=== PATIENT | female | born 1930 | race Caucasian/White ===

== ENCOUNTER 2017-10-31 20:11 | Emergency (ER) | payer MEDICARE ==
[~2017-10-31] VITALS: Ht 172.7 cm; Wt 70.0 kg
[2017-10-31 20:19] VITALS: BP 149/69; PULSE 98; RESP 16; TEMP 98.1; O2SAT 94
[2017-10-31 20:38] VITALS: PULSE 95; RESP 16; O2SAT 92
--- NOTE | 2017-10-31 20:40 | PD ---
HPI Chief Complaint: Fall Time Seen by Provider: 20:26 Travel History International Travel<30 days: No Contact w/Intl Traveler<30days: No Traveled to known affect area: No History of Present Illness HPI This is an 86-year-old female who presented via EMS for evaluation of fall. Reportedly the patient fell at home in her bathroom. The patient pressed her life alert button and that is how EMS was able to find her. The circumstances surrounding the incident are unclear the patient is a poor historian. When asked if she fell she says yes. When asked how she fell she is unable to answer. When asked if she has pain she says her back hurts. History is otherwise not obtainable and not available. She does seem to have a cough during examination. The patient has never been here before. PFSH Past Medical History ?: Not Family History Narrative Family History Unable to obtain Social History Alcohol Use: No (Unable to obtain) Tobacco Use: No (Unable to obtain) Allergies-Medications (Allergen,Severity, Reaction): Coded Allergies: No Known Allergies (Unverified , 10/31/17) Reported Meds & Prescriptions Reported Meds & Active Scripts Active Azithromycin 250 Mg Tab 250 Mg PO DAILY 4 Days Review of Systems ROS Limitations: Poor Historian Except as stated in HPI: all other systems reviewed are Neg Physical Exam Exam Limitations: Poor Historian Narrative GENERAL: This is an elderly female who is in no acute distress. SKIN: Warm and dry. There is a hematoma/abrasion on the right eyebrow. Skin tears are noted on the right arm. HEAD: Skin as noted above. Normocephalic. EYES: Pupils equal and round. No scleral icterus. No injection or drainage. ENT: No nasal bleeding or discharge. Mucous membranes pink and moist. NECK: Trachea midline. No JVD. CARDIOVASCULAR: Regular rate and rhythm. No murmur appreciated. RESPIRATORY: No accessory muscle use. Clear to auscultation. Breath sounds equal bilaterally. GASTROINTESTINAL: Abdomen soft, non-tender, nondistended. Hepatic and splenic margins not palpable. MUSCULOSKELETAL: No obvious deformities. There is no apparent tenderness to palpation along the cervical thoracic or lumbar midline spine when the patient was logrolled off of her backboard. Cervical collar will be maintained. NEUROLOGICAL: Awake and alert. No obvious cranial nerve deficits. Motor grossly within normal limits. Normal speech. The patient is alert to person and place and time but otherwise is an extremely poor historian and is unable to provide any additional history in regards to her fall today. Data Data Last Documented VS Vital Signs Date Time Temp Pulse Resp B/P (MAP) Pulse Ox O2 Delivery O2 Flow Rate FiO2 10/31/17 20:38 95 16 92 Room Air 10/31/17 20:19 98.1 149/69 (95) Orders Orders Electrocardiogram (10/31/17 20:34) Complete Blood Count With Diff (10/31/17 20:34) Comprehensive Metabolic Panel (10/31/17 20:34) Creatine Kinase (Cpk) (10/31/17 20:34) Prothrombin Time / Inr (Pt) (10/31/17 20:34) Act Partial Throm Time (Ptt) (10/31/17 20:34) Troponin I (10/31/17 20:34) Chest, Single Ap (10/31/17 20:34) Ct Brain W/O Iv Contrast(Rout) (10/31/17 20:34) Blood Glucose (10/31/17 20:34) Ecg Monitoring (10/31/17 20:34) Iv Access Insert/Monitor (10/31/17 20:34) Oximetry (10/31/17 20:34) Sodium Chloride 0.9% Flush (Ns Flush) (10/31/17 20:45) Pelvis, Ap Only (Routine) (10/31/17 ) Spine, Thoracic-Ap/Lat/Sw(3vw) (10/31/17 ) Spine, Lumbar - Ltd (Ap & Lat) (10/31/17 ) Ct Cerv Spine W/O Contrast (10/31/17 ) Tetanus/Diphtheria Tox Adult (Tetanus/Di (10/31/17 20:45) Azithromycin (Zithromax) (10/31/17 22:15) Labs Laboratory Tests Test 10/31/17 20:50 White Blood Count 6.6 TH/MM3 Red Blood Count 4.13 MIL/MM3 Hemoglobin 13.5 GM/DL Hematocrit 39.0 % Mean Corpuscular Volume 94.4 FL Mean Corpuscular Hemoglobin 32.8 PG Mean Corpuscular Hemoglobin Concent 34.8 % Red Cell Distribution Width 13.1 % Platelet Count 132 TH/MM3 Mean Platelet Volume 9.3 FL Neutrophils (%) (Auto) 85.1 % Lymphocytes (%) (Auto) 6.6 % Monocytes (%) (Auto) 7.5 % Eosinophils (%) (Auto) 0.5 % Basophils (%) (Auto) 0.3 % Neutrophils # (Auto) 5.6 TH/MM3 Lymphocytes # (Auto) 0.4 TH/MM3 Monocytes # (Auto) 0.5 TH/MM3 Eosinophils # (Auto) 0.0 TH/MM3 Basophils # (Auto) 0.0 TH/MM3 CBC Comment DIFF FINAL Differential Comment Prothrombin Time 10.0 SEC Prothromb Time International Ratio 1.0 RATIO Activated Partial Thromboplast Time 26.9 SEC Blood Urea Nitrogen 16 MG/DL Creatinine 0.70 MG/DL Random Glucose 123 MG/DL Total Protein 5.9 GM/DL Albumin 3.3 GM/DL Calcium Level 8.5 MG/DL Alkaline Phosphatase 62 U/L Aspartate Amino Transf (AST/SGOT) 24 U/L Alanine Aminotransferase (ALT/SGPT) 21 U/L Total Bilirubin 0.4 MG/DL Sodium Level 138 MEQ/L Potassium Level 4.0 MEQ/L Chloride Level 104 MEQ/L Carbon Dioxide Level 25.3 MEQ/L Anion Gap 9 MEQ/L Estimat Glomerular Filtration Rate 80 ML/MIN Total Creatine Kinase 55 U/L Troponin I LESS THAN 0.02 NG/ML MDM Medical Decision Making Medical Screen Exam Complete: Yes Emergency Medical Condition: Yes Medical Record Reviewed: Yes Differential Diagnosis Mechanical fall, syncope, arrhythmia, electrolyte abnormality, orthostatic hypotension, hypoglycemia, closed head injury, intracranial hemorrhage, sepsis Narrative Course The patient was placed on ECG monitoring pulse oximetry. A 12-lead EKG was obtained revealing sinus rhythm with frequent supraventricular complexes. Lab work, CT of the brain and cervical spine, chest x-ray, thoracic and lumbar spine and pelvis x-rays have been ordered. Urinalysis has been ordered. 2114: The patient's son has arrived and provides additional history. The patient has a history of pick's disease, for progressive dementia. She has no other significant past medical history. Her neurologist is Dr. Masterson. Her primary care physician is Dr. Adorno. He leaves that she may have fallen off the toilet. He reports that she is off balance sometimes when ambulating secondary to her history of pick's disease. She has difficulty communicating as a baseline. He has noted that she has had a cough and congestion over the past 2 days. CBC is unremarkable. CMP reveals a glucose of 123 otherwise unremarkable. Cardiac enzymes negative. Imaging studies reveal no acute abnormalities. The cervical collar was removed and the patient was able to stand with assistance which is her baseline. She typically ambulates with a walker. She feels much better now the collar has been removed and she is able to move around somewhat. She reports that she fell off of her toilet. Because of her new cough, she will be started on azithromycin. Her son and daughter feel comfortable taking her home. They understand to return for any acutely new or worsening symptoms. Diagnosis Primary Impression: Fall Additional Impressions: Traumatic hematoma of forehead Abrasions of multiple sites Bronchitis Additional Instructions: Medication as prescribed. Wash the wounds daily with soap and water and apply antibiotic cream and clean bandages. Ice the forehead several times a day 15 minutes at a time to reduce swelling. Follow-up with primary care physician in 3-4 days. Return for any acutely new or worsening symptoms. Med/Other Pt SpecificInfo: Prescription(s) given, Wound Care Scripts Azithromycin (Azithromycin) 250 Mg Tab 250 MG PO DAILY for Infection for 4 Days, #4 TAB 0 Refills Prov: Christopher Jennings MD 10/31/17 Disposition: 01 DISCHARGE HOME Condition: Stable Ronni Juares Oct 31, 2017 20:40
[2017-10-31] MEDS ORDERED: SODIUM CHLORIDE 0.9% FLUSH 10 ML FLUSH IV FLUSH PRN (20:45)
[2017-10-31] MEDS ORDERED: TETANUS/DIPHTHERIA TOXOID ADULT 0.5 ML VIAL IM ONE (20:45)
--- NOTE | 2017-10-31 21:16 | RADRPT ---
EXAM DATE/TIME: 10/31/2017 20:45 [facility] COMPARISON: No previous studies available for comparison. INDICATIONS : Trauma; fall. Hematoma over right eye. RADIATION DOSE: 56.35 CTDIvol (mGy) MEDICAL HISTORY : Non-responsive. SURGICAL HISTORY : Non-responsive. ENCOUNTER: Initial ACUITY: 1 day PAIN SCALE: Non-responsive LOCATION: cranial TECHNIQUE: Multiple contiguous axial images were obtained of the head. Using automated exposure control and adj ustment of the mA and/or kV according to patient size, radiation dose was kept as low as reasonably a chievable to obtain optimal diagnostic quality images. DICOM format image data is available electro nically for review and comparison. FINDINGS: CEREBRUM: The ventricles are normal for age. No evidence of midline shift, mass lesion, hemorrhage or acute in farction. No extra-axial fluid collections are seen. POSTERIOR FOSSA: The cerebellum and brainstem are intact. The 4th ventricle is midline. The cerebellopontine angle i s unremarkable. EXTRACRANIAL: The visualized portion of the orbits is intact. Right periorbital soft tissue swelling. SKULL: The calvaria is intact. No evidence of skull fracture. CONCLUSION: 1. No acute intracranial abnormalities. Right periorbital soft tissue swelling. Taiwo Gallagher MD on October 31, 2017 at 21:12 Board Certified Radiologist. This report was verified electronically.
[2017-10-31 21:18] LABS: AUTOMATED NEUTROPHIL # 5.6 TH/MM3 (1.8-7.7); BASOPHIL % 0.3 % (0.0-2.0); EOSINOPHIL % 0.5 % (0.0-4.0); HEMOGLOBIN 13.5 GM/DL (11.6-15.3); LYMPH % 6.6 % (9.0-44.0); LYMPHOCYTE # 0.4 TH/MM3 (1.0-4.8); MEAN CELL VOLUME 94.4 FL (80.0-100.0); MEAN CORPUSCULAR HEMOGLOBIN 32.8 PG (27.0-34.0); MEAN CORPUSCULAR HGB CONC 34.8 % (32.0-36.0); MEAN PLATELET VOLUME 9.3 FL (7.0-11.0); MONO % 7.5 % (0.0-8.0); MONOCYTE # 0.5 TH/MM3 (0-0.9); NEUT % 85.1 % (16.0-70.0); PLATELET COUNT 132 TH/MM3 (150-450); RED BLOOD COUNT 4.13 MIL/MM3 (4.00-5.30); RED CELL DISTRIBUTION WIDTH 13.1 % (11.6-17.2); WHITE BLOOD COUNT 6.6 TH/MM3 (4.0-11.0)
--- NOTE | 2017-10-31 21:19 | RADRPT ---
EXAM DATE/TIME: 10/31/2017 20:45 [facility] COMPARISON: No previous studies available for comparison. INDICATIONS : Trauma; fall. RADIATION DOSE: 17.77 CTDIvol (mGy) MEDICAL HISTORY : Non-responsive. SURGICAL HISTORY : Non-responsive. ENCOUNTER: Initial ACUITY: 1 day PAIN SCALE: Non-responsive LOCATION: neck TECHNIQUE: Volumetric scanning of the cervical spine was performed. Multiplanar reconstructions in the sagittal, coronal and oblique axial planes were performed. Using automated exposure control and adjustment o f the mA and/or kV according to patient size, radiation dose was kept as low as reasonably achievable to obtain optimal diagnostic quality images. DICOM format image data is available electronically f or review and comparison. FINDINGS: There is no acute fracture or spondylolisthesis. There is slight reversal of the normal cervical lord osis. There is moderate degenerative disc disease throughout. No central canal stenosis. Multilevel m ild foraminal encroachment. CONCLUSION: 1. No acute bony abnormalities. Moderate degenerative change. No prevertebral soft tissue swelling. Taiwo Gallagher MD on October 31, 2017 at 21:14 Board Certified Radiologist. This report was verified electronically.
[2017-10-31 21:40] LABS: ALBUMIN 3.3 GM/DL (3.4-5.0); AST (GOT) 24 U/L (15-37); BICARBONATE 25.3 MEQ/L (21.0-32.0); BLOOD UREA NITROGEN 16 MG/DL (7-18); CALCIUM 8.5 MG/DL (8.5-10.1); CHLORIDE 104 MEQ/L (98-107); GLOMERULAR FILTRATION RATE 80 ML/MIN (>89); GLUCOSE,RANDOM 123 MG/DL (74-106); SODIUM (NA) 138 MEQ/L (136-145)
[2017-10-31 21:41] LABS: ALT (GPT) 21 U/L (10-53)
--- NOTE | 2017-10-31 21:42 | RADRPT ---
EXAM DATE/TIME: 10/31/2017 21:03 [facility] COMPARISON: No previous studies available for comparison. INDICATIONS : Pain in pelvic region post fall today. MEDICAL HISTORY : Unresponsive. SURGICAL HISTORY : Unresponsive. ENCOUNTER: Initial ACUITY: 1 day PAIN SCORE: Non-responsive. LOCATION: Pelvis. FINDINGS: A single frontal view of the pelvis demonstrates no evidence of fracture. The bony pelvic ring is in tact. Bony mineralization is normal. The soft tissues are intact. CONCLUSION: 1. No acute findings. Taiwo Gallagher MD on October 31, 2017 at 21:38 Board Certified Radiologist. This report was verified electronically.
--- NOTE | 2017-10-31 21:44 | RADRPT ---
EXAM DATE/TIME: 10/31/2017 21:18 [facility] COMPARISON: No previous studies available for comparison. INDICATIONS : Mid chest pain post fall today. MEDICAL HISTORY : Unresponsive. SURGICAL HISTORY : Unresponsive. ENCOUNTER: Initial ACUITY: 1 day PAIN SCORE: Non-responsive. LOCATION: Bilateral chest FINDINGS: A single view of the chest demonstrates the lungs to be symmetrically aerated without evidence of mas s, infiltrate or effusion. The cardiomediastinal contours are unremarkable. Osseous structures are intact. CONCLUSION: No acute disease. Mild scoliosis. Taiwo Gallagher MD on October 31, 2017 at 21:41 Board Certified Radiologist. This report was verified electronically.
[2017-10-31 21:45] LABS: ALKALINE PHOSPHATASE 62 U/L (45-117); TOTAL BILIRUBIN ADULT 0.4 MG/DL (0.2-1.0); TOTAL PROTEIN 5.9 GM/DL (6.4-8.2); TROPONIN I LESS THAN 0.02 NG/ML (0.02-0.05)
--- NOTE | 2017-10-31 21:46 | RADRPT ---
EXAM DATE/TIME: 10/31/2017 21:07 [facility] COMPARISON: No previous studies available for comparison. INDICATIONS : Pain in mid back region post fall today. MEDICAL HISTORY : Unresponsive. SURGICAL HISTORY : Unresponsive. ENCOUNTER: Initial ACUITY: 1 day PAIN SCORE: Non-responsive. LOCATION: Thoracic spine. FINDINGS: There is a mild scoliosis. Vertebral body height is maintained. No evidence of fracture or subluxati on. Pedicles are intact at all levels. The paravertebral reflections are not thickened. CONCLUSION: 1. Mild scoliosis. No acute findings. Taiwo Gallagher MD on October 31, 2017 at 21:42 Board Certified Radiologist. This report was verified electronically.
--- NOTE | 2017-10-31 21:47 | RADRPT ---
EXAM DATE/TIME: 10/31/2017 21:08 [facility] COMPARISON: No previous studies available for comparison. INDICATIONS : Pain in lower back, post fall today. MEDICAL HISTORY : Unresponsive. SURGICAL HISTORY : Unresponsive. ENCOUNTER: Initial ACUITY: 1 day PAIN SCORE: Non-responsive. LOCATION: Lumbar spine. FINDINGS: Two view examination was performed. There is a mild to moderate lumbar dextroscoliosis with advanced degenerative change along the right side of L3-4. Mild right lateral listhesis of L4 on L5. Prominent osteophyte at the lumbosacral junction. No acute fracture. CONCLUSION: 1. No acute fracture. Moderate to severe degenerative change as above with a mild to moderate rotator y dextroscoliosis. Taiwo Gallagher MD on October 31, 2017 at 21:43 Board Certified Radiologist. This report was verified electronically.
[2017-10-31] MEDS ORDERED: AZITHROMYCIN 250 MG TAB PO ONE (22:15)
[2017-10-31] MEDS ORDERED: AZIT250T3 PO (22:15)
--- NOTE | 2017-11-02 00:28 | EKG ---
Date Performed: 10/31/2017 Time Performed: 20:27:01 PTAGE: 86 years EKG: Sinus rhythm WITH FREQUENT SUPRAVENTRICULAR PREMATURE COMPLEXES RIGHT BUNDLE BRANCH BLOCK LEFT ANTERIOR FASCICULA R BLOCK ABNORMAL ECG NO PREVIOUS TRACING DOCTOR: Jayce Manjarrez Interpretating Date/Time 11/02/2017 00:27:22
== END 2017-10-31 22:51 | disposition home or self-care (01) ==
LOC: NEPC 20:11
DX: S00.83XA Contusion of other part of head, initial encounter (principal); T14.8XXA Other injury of unspecified body region, initial encounter; R94.31 Abnormal electrocardiogram [ECG] [EKG]; J40 Bronchitis, not specified as acute or chronic; W18.11XA Fall from or off toilet without subsequent striking against object, initial encounter; Y92.002 Bathroom of unspecified non-institutional (private) residence as the place of occurrence of the external cause; Z23 Encounter for immunization
CPT/HCPCS: 70450; 71045; 72072; 72100; 72125; 72170; 80053; 82550; 84484; 85025; 85610; 85730; 90471; 90714; 93005